=== PATIENT | male | born 1950 | race Caucasian/White ===

== ENCOUNTER → 2017-03-21 | Outpatient (CLI) | payer OTHER ==
--- NOTE | 2017-03-21 11:39 | MR ---
EXAMINATION TYPE: MR shoulder RT wo con DATE OF EXAM: 03/21/2017 11:23 AM COMPARISON: NONE HISTORY: Rt. Shoulder pain TECHNIQUE: Multiplanar, multisequence imaging of the right shoulder is performed without contrast. FINDINGS: There is no evidence of an os acromiale. There are moderate hypertrophic and inflammatory c hanges in the right AC joint. The acromion is neutral. There is a complete tear of the supraspinatus and infraspinatus tendons. There is muscular retraction back to the level of the superior glenoid labrum. There is decentering of the humeral head. The superior glenoid labrum is torn this is undisplaced. The biceps tendon is attenuated within the biceps tendon groove I am unable to follow the biceps tend on in its intra-articular course may be ruptured. There is a small, 7.4 mm pseudocyst adjacent to the anterior and medial portion of the biceps tendon groove. There is an indirect sign of impingement. IMPRESSION: 1. COMPLETE TEAR OF THE INFRASPINATUS AND SUPRASPINATUS TENDONS WITH MUSCULAR RETRACTION BACK TO THE LEVEL OF THE SUPERIOR GLENOID LABRUM. 2. SLAP 2 TEAR OF THE SUPERIOR GLENOID LABRUM. 3. I'M STRONGLY SUSPICIOUS OF THE PATIENT'S BICEPS TENDON IS RUPTURED. 4. DECENTERING OF THE GLENOID WITHIN THE GLENOHUMERAL JOINT. 5. HYPERTROPHIC AND INFLAMMATORY CHANGES IN THE RIGHT AC JOINT.
== END | disposition home or self-care (01) ==
LOC: RADMRIMAIN 10:26
PROVIDERS: ATTEND Physician Assistant
DX: S46.811A Strain of other muscles, fascia and tendons at shoulder and upper arm level, right arm, initial encounter (principal); S43.431A Superior glenoid labrum lesion of right shoulder, initial encounter

== ENCOUNTER → 2019-09-08 | Outpatient (CLI) | payer OTHER ==
--- NOTE | 2019-09-09 16:09 | MR ---
EXAMINATION TYPE: MR shoulder LT wo con DATE OF EXAM: 09/08/2019 COMPARISON: Plain film 08/10/2019 HISTORY: Lt shoulder pain x 4 mos TECHNIQUE: Multiplanar, multisequence imaging of the left shoulder is performed without contrast. FINDINGS: Rotator Cuff: There is a rotator cuff tear with retraction of the supraspinatus tendon to the level o f the distal clavicle., Infraspinatus tendon is also torn and retracted, ill-defined Acromioclavicular Joint: Hypertrophic changes are present at the acromioclavicular joint Glenohumeral Joint: Shoulder is high riding. Labrum: The labrum appears grossly intact given limitation of non-arthrogram study. Biceps Tendon: The long head of biceps is in normal location within bicipital groove. Bone marrow signal: There is a T1 isointense, T2 intense focus within the humeral head measuring appr oximately 2.5 cm in greatest cephalad to caudal dimension likely representing a large geode within th e lateral superior proximal humerus possibly bone cyst Other: There is fluid signal subacromial subdeltoid bursa. Spurring present at the proximal humerus. Small joint effusion. IMPRESSION: Rotator cuff tear. Osteoarthritis. Probable large geode or bone cyst.
== END | disposition home or self-care (01) ==
LOC: RADMRIMAIN 12:38
PROVIDERS: ATTEND Physician Assistant
DX: M75.102 Unspecified rotator cuff tear or rupture of left shoulder, not specified as traumatic (principal); M19.012 Primary osteoarthritis, left shoulder

== ENCOUNTER → 2019-11-03 | Outpatient (CLI) | payer OTHER ==
[2019-11-03 14:41] LABS: Basophils % (A) 0 %; Eosinophils # (A) 0.2 k/uL (0-0.7); Eosinophils % (A) 2 %; HCT 48.5 % (39.0-53.0); HGB 16.2 gm/dL (13.0-17.5); Lymphocytes # (A) 2.9 k/uL (1.0-4.8); Lymphocytes % (A) 39 %; MCH 32.3 pg (25.0-35.0); MCHC 33.3 g/dL (31.0-37.0); MCV 96.9 fL (80.0-100.0); Mean Platelet Volume 7.7; Monocytes # (A) 0.4 k/uL (0-1.0); Monocytes % (A) 6 %; Neutrophils # (A) 3.7 k/uL (1.3-7.7); Neutrophils % (A) 49 %; Platelet Count 277 k/uL (150-450); RBC 5.01 m/uL (4.30-5.90); RDW 12.7 % (11.5-15.5); WBC 7.6 k/uL (3.8-10.6)
[2019-11-03 14:42] LABS: Potassium 4.4 mmol/L (3.5-5.1)
== END | disposition home or self-care (01) ==
LOC: LABPAT 11-02 11:34
PROVIDERS: ATTEND Orthopaedic Surgery
DX: Z01.818 Encounter for other preprocedural examination (principal); Z01.812 Encounter for preprocedural laboratory examination; M75.42 Impingement syndrome of left shoulder
CPT/HCPCS: 36415; 80051; 85025; 93005

== ENCOUNTER → 2020-01-22 | Outpatient (CLI) | payer OTHER ==
[2020-01-22 13:33] LABS: Basophils # (A) 0.1 k/uL (0-0.2); Basophils % (A) 1 %; Eosinophils # (A) 0.2 k/uL (0-0.7); Eosinophils % (A) 3 %; HCT 45.5 % (39.0-53.0); HGB 14.7 gm/dL (13.0-17.5); Lymphocytes # (A) 2.5 k/uL (1.0-4.8); Lymphocytes % (A) 37 %; MCH 31.9 pg (25.0-35.0); MCHC 32.4 g/dL (31.0-37.0); MCV 98.5 fL (80.0-100.0); Mean Platelet Volume 7.9; Monocytes # (A) 0.4 k/uL (0-1.0); Monocytes % (A) 5 %; Neutrophils # (A) 3.5 k/uL (1.3-7.7); Neutrophils % (A) 51 %; Platelet Count 239 k/uL (150-450); RBC 4.62 m/uL (4.30-5.90); RDW 12.8 % (11.5-15.5); WBC 6.9 k/uL (3.8-10.6)
[2020-01-23 00:34] LABS: Anion Gap 7.7 mmol/L (4.00-12.00); Carbon Dioxide 25.3 mmol/L (21.6-31.8)
== END | disposition home or self-care (01) ==
LOC: LABWHC1 11:54
PROVIDERS: ATTEND Pediatrics Pediatric Infectious Diseases
DX: Z01.818 Encounter for other preprocedural examination (principal); M75.42 Impingement syndrome of left shoulder
CPT/HCPCS: 80051; 85025; 36415; U0003

== ENCOUNTER 2020-01-25 10:29 | Day surgery (SDC) | payer OTHER ==
[2020-01-21 13:00] VITALS: BMI 24.3
--- NOTE | 2020-01-24 15:32 | HP ---
HISTORY AND PHYSICAL REASON FOR ADMISSION: Surgery is scheduled for 01/25/2020. Nirav Sherman is a 69-year-old patient seen with progressive left shoulder pain. We discussed options. He elected to proceed with arthroscopy. Consent was obtained. PAST MEDICAL HISTORY: Asthma. PAST SURGICAL HISTORY: Carpal tunnel release, right knee surgery. DAILY MEDICATIONS: Ibuprofen. ALLERGIES: SUDAFED. SOCIAL HISTORY: Denies current tobacco use. PHYSICAL EXAMINATION: Evaluation of the left shoulder: Flexion is 140 degrees, abduction 120 degrees, external rotation is 30 degrees with significant weakness. There is tenderness along the anterolateral acromion and rotator cuff insertion site. Impingement positive at 60 degrees. Drop-arm sign is positive. Distal neurovascular exam is intact. RADIOGRAPHS: Radiographs of the left shoulder revealed a type 2 anterior acromion, acromioclavicular joint osteoarthritic changes with cystic changes along the tuberosity. MRI of the left shoulder revealed a retracted rotator cuff tendon tear. IMPRESSION: 1. Left shoulder impingement with rotator cuff tear. 2. Left shoulder acromioclavicular joint osteoarthritis. PLAN: Left shoulder arthroscopy with subacromial decompression, arthroscopic rotator cuff repair, Caleb procedure and debridement. Surgery is scheduled for 01/25/2020. MMODL / IJN: [id number] /
[~2020-01-25 10:29] MED LIST: DEXAMETHASONE SOD PHOSPHATE 10 MG/ML 1 ML VIAL IV ONE; HYDROmorphone 0.5 MG/0.5 ML SYRINGE IVP PRN; LACTATED RINGERS 1,000 ML IV SCH; MIDAZOLAM 2 MG/2 ML VIAL IV PRN; ONDANSETRON 4 MG/2 ML VIAL IVP ONE
[2020-01-25] MEDS ORDERED: fentaNYL (PF) 50 MCG/ML 2 ML AMP IVP ONE (11:17)
--- NOTE | 2020-01-25 11:28 | P.ANPRN ---
Procedure Note - Anesthesia - Nerve Block Performed Left Interscalene Single Time Out Performed: Yes Date of Procedure: 01/25/20 Procedure Start Time: 11:16 Procedure Stop Time: 11:26 Location of Patient: PreOp Indication: Acute Post-Operative Pain, Requested by Surgeon Sedation Type: Sedate with meaningful contact maintained Preparation: Sterile Prep Position: Sitting Catheter: None Needle Types: Pajunk Needle Gauge: 21 Ultrasound used to visualize needle placement: Yes Ultrasound used to observe medication spread: Yes Injectate: 0.5% Ropivacaine (see comment for volume) (ROPIVACAINE 0.5%- 19 CC + DECADRON 4MG) Blood Aspirated: No Pain Paresthesia on Injection Noted: No Resistance on Injection: Normal Image Stored and Saved: Yes Events: Uneventful and Well Tolerated
[2020-01-25] MEDS ORDERED: PROPOFOL 10 MG/ML 20 ML VIAL IV ONE (12:00)
[2020-01-25] MEDS ORDERED: DEXAMETHASONE SOD PHOSPHATE 4 MG/ML 1 ML VIAL ONE (12:00)
[2020-01-25] MEDS ORDERED: MIDAZOLAM 2 MG/2 ML VIAL ONE (12:00)
[2020-01-25] MEDS ORDERED: LIDOCAINE 1% INJ 10MG/ML (20 ML MDV) ONE (12:00)
[2020-01-25] MEDS ORDERED: ROPIVACAINE 5 MG/ML 30 ML VIAL ONE (12:00)
[2020-01-25] MEDS ORDERED: ePHEDrine SULFATE/0.9% NACL/PF 50 MG/5 ML SYRINGE IV ONE (12:00)
[2020-01-25] MEDS ORDERED: fentaNYL (PF) 50 MCG/ML 2 ML AMP ONE (12:00)
[2020-01-25] MEDS ORDERED: SUCCINYLCHOLINE CHLORIDE 100 MG/5 ML SYR IV ONE (12:00)
[2020-01-25] MEDS ORDERED: LACTATED RINGERS 1,000 ML IV ONE (13:29)
[2020-01-25 13:35] VITALS: TEMP 96.9
--- NOTE | 2020-01-25 13:39 | P.OP ---
Date of Procedure: 01/25/20 Preoperative Diagnosis: Left shoulder impingement Postoperative Diagnosis: 1. Left shoulder massive nonrepairable rotator cuff tendon tear 2. Left shoulder impingement 3. Left shoulder acromioclavicular joint osteoarthritis 4. Left shoulder partial long head biceps tendon tear Procedure(s) Performed: 1. Left shoulder arthroscopic subacromial decompression 2. Left shoulder arthroscopic Caleb procedure 3. Left shoulder arthroscopic biceps tenotomy Anesthesia: GETA, regional (Interscalene block) Surgeon: Manjinder Bowles Estimated Blood Loss (ml): 11 Pathology: none sent Condition: stable Disposition: PACU Indications for Procedure: 69-year-old patient seen with progressive left shoulder pain. After having treatment options discussed, he elected to proceed with arthroscopy. Operative Findings: See description of procedure Description of Procedure: Patient underwent an interscalene block by department of anesthesia. The patient was then taken to the operative suite. The patient underwent a general anesthetic by the department of anesthesia. The patient was placed into a lateral position and secured. There was appropriate padding of the bony prominence. Left shoulder was then prepped and draped in normal sterile orthopedic fashion. We placed the extremity in 10 pounds of longitudinal traction. A posterior incision was now made for a posterior working portal site. The trocar and cannula were inserted into the glenohumeral joint. Arthroscopy was initiated. Spinal needle was now inserted anteriorly, to ascertain the anterior working portal site. An incision was now made in that area, a trocar was inserted followed by a probe. I immediately noted a massive rotator cuff tear that I could visualize from glenohumeral side. I couldn't visualize any rotator cuff tendon tissue. There were mild grade 1 chondromalacia changes of the glenohumeral joint. There was a significant partial long head biceps tendon tear noting about 80% tendon fibers were torn. I performed arthroscopic biceps tenotomy. I probed the labrum and it was stable. Instruments removed from glenohumeral joint. Utilizing the posterior working portal site, the trocar and cannula were inserted into the subacromial space. Arthroscopy initiated. I made an incision 2 fingerbreadths lateral to the acromion. I introduced my trocar followed by my ArthroCare ablator. I now began ablating thick subacromial bursal tissue, which exposed the undersurface of the anterior acromion. There was diminished subacromial space. There was a very prominent anterior acromion. There was no rotator cuff tendon tissue [] a repair. I finally found retracted tissue beyond the labrum. It was not mobile. A motorized bur was introduced and a subacromial decompression was performed. I also excised some osteophytes off the inferior aspect of the distal clavicle. The AC joint was visualized and noted to be fairly arthritic. The motorized bur was introduced in the anterior portal site and a Caleb procedure was performed without difficulty, decompressing the AC joint nicely. I turned my attention to the rotator cuff. I now tried to release what tendon tissue I found superiorly and posteriorly. It was not mobile. There was no real tendon tissue to repair. Instruments now removed from the portal sites. All portal sites were approximated with nylon suture. I injected 1 mL Renyte subacromially. Sterile dressings were applied followed by a shoulder sling. The patient was awakened, transferred to a bed, and taken to recovery in stable condition.
[2020-01-25 13:47] VITALS: RESP 16
[2020-01-25 14:30] VITALS: BP 120/70; PULSE 82
== END 2020-01-25 14:59 | disposition home or self-care (01) ==
LOC: OR 10:29
PROVIDERS: ATTEND Orthopaedic Surgery
DX: M19.012 Primary osteoarthritis, left shoulder (principal); M75.102 Unspecified rotator cuff tear or rupture of left shoulder, not specified as traumatic; S46.112A Strain of muscle, fascia and tendon of long head of biceps, left arm, initial encounter; M75.42 Impingement syndrome of left shoulder; M94.212 Chondromalacia, left shoulder; J45.909 Unspecified asthma, uncomplicated; Z88.8 Allergy status to other drugs, medicaments and biological substances; Z87.891 Personal history of nicotine dependence; Z79.899 Other long term (current) drug therapy; Z98.890 Other specified postprocedural states
CPT/HCPCS: 64415; 76942; 29826; 29824; J2250; J1100 ×2; J0690; J2405; J2001; J3010; J2795; J0330; J2704

== ENCOUNTER → 2021-01-17 | Outpatient (CLI) | payer OTHER ==
[2021-01-17 12:41] LABS: Basophils % (A) 1 %; Eosinophils # (A) 0.2 k/uL (0-0.7); Eosinophils % (A) 3 %; HGB 15.3 gm/dL (13.0-17.5); Lymphocytes # (A) 2.1 k/uL (1.0-4.8); Lymphocytes % (A) 33 %; MCH 32.8 pg (25.0-35.0); MCHC 34.1 g/dL (31.0-37.0); MCV 96.3 fL (80.0-100.0); Mean Platelet Volume 8.2; Monocytes # (A) 0.4 k/uL (0-1.0); Monocytes % (A) 6 %; Neutrophils # (A) 3.5 k/uL (1.3-7.7); Neutrophils % (A) 55 %; Platelet Count 227 k/uL (150-450); RBC 4.67 m/uL (4.30-5.90); RDW 12.6 % (11.5-15.5); WBC 6.3 k/uL (3.8-10.6)
[2021-01-17 12:52] LABS: Potassium 4.4 mmol/L (3.5-5.1)
== END | disposition home or self-care (01) ==
LOC: LABPAT 10:58
PROVIDERS: ATTEND Orthopaedic Surgery
DX: G56.01 Carpal tunnel syndrome, right upper limb (principal); Z01.812 Encounter for preprocedural laboratory examination
CPT/HCPCS: 36415; 80051; 85025

== ENCOUNTER 2021-02-09 12:28 | Day surgery (SDC) | payer OTHER ==
[2021-02-07 12:08] VITALS: BMI 24.0
--- NOTE | 2021-02-08 21:10 | HP ---
HISTORY AND PHYSICAL REASON FOR ADMISSION: Surgery is scheduled for 02/09/2021 HISTORY OF PRESENT ILLNESS: Nirav Wynn is a 70-year-old patient seen with symptomatic right carpal tunnel syndrome. We discussed options for treatment. He elected to proceed with decompression right median nerve. Consent was obtained. PAST MEDICAL HISTORY: Asthma. PAST SURGICAL HISTORY: Carpal tunnel surgery, herniorrhaphy, knee arthroscopy, shoulder arthroscopy. MEDICATIONS: Ibuprofen. ALLERGIES: SUDAFED. SOCIAL HISTORY: Denies tobacco use. PHYSICAL EXAMINATION: Physical evaluation of the right hand: He has a positive carpal compression and carpal Tinel's causing numbness and tingling throughout the median nerve distribution. He does have some decreased sensation throughout the median nerve distribution. He is nontender along the A1 les sites. There is good perfusion distally. Good radial pulse present. EMG of the right upper extremity revealed a right carpal tunnel syndrome. RADIOGRAPHS: Radiographs of the right wrist and hand revealed carpometacarpal osteoarthritis. IMPRESSION: 1. Right carpal tunnel syndrome. 2. Right wrist osteoarthritis. 3. Asthma. PLAN: Decompression, right median nerve. MMODL / IJN: [id number] /
[~2021-02-09 12:28] MED LIST changes: -DEXAMETHASONE SOD PHOSPHATE 10 MG/ML 1 ML VIAL IV ONE; +DEXAMETHASONE SOD PHOSPHATE 4 MG/ML 1 ML VIAL IV ONE; -LACTATED RINGERS 1,000 ML IV SCH; +LIDOCAINE 1% (10MG/ML) FOR IV START INTRADERMA PRN; +Pre Op ABX Message 1 EACH MISC MISCELLANE ONE
[2021-02-09] MEDS: LACTATED RINGERS 1,000 ML IV SCH ×2 (13:25→13:50)
[2021-02-09] MEDS ORDERED: PROPOFOL 10 MG/ML 20 ML VIAL IV ONE (13:45)
[2021-02-09] MEDS ORDERED: fentaNYL (PF) 50 MCG/ML 2 ML AMP ONE (13:45)
[2021-02-09] MEDS ORDERED: MIDAZOLAM 2 MG/2 ML VIAL ONE (13:45)
[2021-02-09] MEDS ORDERED: LIDOCAINE 1% INJ 10MG/ML (20 ML MDV) ONE (13:45)
[2021-02-09] MEDS ORDERED: BUPIVACAINE (PF) 0.25% 30 ML VIAL SQ ONE ×2 (13:47→13:58)
[2021-02-09] MEDS ORDERED: SODIUM CHLORIDE 0.9% 100 ML with ceFAZolin 2,000 MG IV ONE ×2 (13:54)
[2021-02-09 14:19] VITALS: TEMP 97.1
--- NOTE | 2021-02-09 14:19 | P.OP ---
Date of Procedure: 02/09/21 Preoperative Diagnosis: Right carpal tunnel syndrome Postoperative Diagnosis: Right carpal tunnel syndrome Procedure(s) Performed: Decompression right median nerve Anesthesia: MAC, local Surgeon: Manjinder Bowles Estimated Blood Loss (ml): 0 Pathology: none sent Condition: stable Disposition: PACU Indications for Procedure: 70-year-old gentleman seen with symptomatic right carpal syndrome. After having treatment options discussed, he elected to proceed with decompression right median nerve. Operative Findings: see description of procedure Description of Procedure: The patient was taken to the operative suite. Patient received preoperative IV antibiotics. He underwent IV sedation by the department of anesthesia. A well- padded tourniquet was placed on the proximal right upper extremity. The right upper extremity was prepped and draped in the normal sterile orthopedic fashion. The extremity was elevated and tourniquet insufflated to 250. I made an incision beginning at the distal volar wrist crease extending distally approximately 3 cm in line with the fourth metacarpal sharply through skin. I dissected down through the palmar fascia exposing the transverse carpal ligament. I made a small incision through the center portion of transverse carpal ligament ligament. I completed the release proximally and distally with blunt Metzenbaums. There was good complete release of the transverse carpal ligament. There was good decompression of the nerve. There was good hemostasis. The wound was irrigated. The skin margins were proximal nylon suture. Sterile dressings were applied. The tourniquet was released with immediate capillary refill noted. The patient was awakened and transferred to recovery stable condition.
[2021-02-09 14:32] VITALS: RESP 16
[2021-02-09 14:45] VITALS: BP 130/72; PULSE 58
== END 2021-02-09 14:56 | disposition home or self-care (01) ==
LOC: OR 12:28
PROVIDERS: ATTEND Orthopaedic Surgery
DX: G56.01 Carpal tunnel syndrome, right upper limb (principal); J45.909 Unspecified asthma, uncomplicated; M19.031 Primary osteoarthritis, right wrist; E78.5 Hyperlipidemia, unspecified; Z79.899 Other long term (current) drug therapy; Z88.8 Allergy status to other drugs, medicaments and biological substances
CPT/HCPCS: 64721; J2250; J1100; J2405; J0690; J2001; J3010; J2704

== ENCOUNTER → 2022-11-23 | Outpatient (CLI) | payer OTHER | END | disposition home or self-care (01) | LOC: LABPAT 10:20 | PROVIDERS: ATTEND Orthopaedic Surgery | DX: Z01.812 Encounter for preprocedural laboratory examination (principal); M17.11 Unilateral primary osteoarthritis, right knee; Z22.322 Carrier or suspected carrier of Methicillin resistant Staphylococcus aureus | CPT/HCPCS: 87070 ==

== ENCOUNTER → 2023-09-24 | Outpatient (CLI) | payer OTHER | END | disposition home or self-care (01) | LOC: LABPAT 16:12 | PROVIDERS: ATTEND Orthopaedic Surgery | DX: Z01.812 Encounter for preprocedural laboratory examination (principal); M17.11 Unilateral primary osteoarthritis, right knee; Z22.322 Carrier or suspected carrier of Methicillin resistant Staphylococcus aureus | CPT/HCPCS: 87070 ==

== ENCOUNTER 2023-12-23 11:14 | Day surgery (SDC) | payer OTHER ==
--- NOTE | 2023-12-22 13:52 | HP ---
HISTORY AND PHYSICAL Surgery scheduled for 12/23/2023. HISTORY OF PRESENT ILLNESS: Nirav Sherman is a 73-year-old gentleman seen with symptomatic right knee osteoarthritis. We discussed the options regarding treatment. He elected to proceed with right total knee arthroplasty. Consent was obtained. Medical clearance provided by . Cardiac clearance was provided by Dr. Graff. PAST MEDICAL HISTORY: Asthma. PAST SURGICAL HISTORY: Carpal tunnel surgery, shoulder arthroscopy, knee arthroscopy, and herniorrhaphy. DAILY MEDICATIONS: 1. Ibuprofen. 2. Rosuvastatin. ALLERGIES: Sudafed. SOCIAL HISTORY: Denies current tobacco use. PHYSICAL EVALUATION OF THE RIGHT KNEE: Range of motion is -2/3 to 130 degrees. Mild effusion. Tenderness along the lateral joint line. Crepitus, lateral patellofemoral compartments. Ligaments stable. Hip rotation without pain. Distal neurovascular exam is intact. IMAGING STUDIES: Right knee radiographs reveal severe lateral compartment and severe patellofemoral compartment osteoarthritis. IMPRESSION: 1. Right knee osteoarthritis. 2. Hyperlipidemia. PLAN: Right total knee arthroplasty. MMODL / IJN: [id number] /
[~2023-12-23 11:14] MED LIST changes: -DEXAMETHASONE SOD PHOSPHATE 4 MG/ML 1 ML VIAL IV ONE; -HYDROmorphone 0.5 MG/0.5 ML SYRINGE IVP PRN; -LIDOCAINE 1% (10MG/ML) FOR IV START INTRADERMA PRN; -MIDAZOLAM 2 MG/2 ML VIAL IV PRN; -ONDANSETRON 4 MG/2 ML VIAL IVP ONE; -Pre Op ABX Message 1 EACH MISC MISCELLANE ONE; +TRANEXAMIC 1,000 MG/100ML-NACL 1,000 MG in SALINE 1 100ML.BAG IVPB PRN
[2023-12-23] MEDS: DEXAMETHASONE SOD PHOSPHATE 4 MG/ML 1 ML VIAL IV ONE (11:55)
[2023-12-23] MEDS: LACTATED RINGERS 1,000 ML IV SCH ×2 (11:55→17:38)
[2023-12-23] MEDS: MELOXICAM 7.5 MG TAB PO PRN (11:55)
[2023-12-23] MEDS: ACETAMINOPHEN TAB 500 MG TAB PO PRN (11:55)
[2023-12-23] MEDS: ONDANSETRON 4 MG/2 ML VIAL IVP ONE (11:55)
[2023-12-23] MEDS: MIDAZOLAM 2 MG/2 ML VIAL IVP ONE (12:07)
[2023-12-23 12:16] LABS: Partial Thromboplastin Time 24.2 sec (22.0-30.0); Prothrombin Time 10.9 sec (10.0-12.5)
[2023-12-23] MEDS ORDERED: fentaNYL (PF) 50 MCG/ML 2 ML AMP ONE (13:03)
[2023-12-23] MEDS ORDERED: PROPOFOL 10 MG/ML 20 ML VIAL IV ONE (13:03)
[2023-12-23] MEDS ORDERED: LIDOCAINE 1% INJ 10MG/ML (20 ML MDV) ONE (13:03)
[2023-12-23] MEDS ORDERED: ROPIVACAINE 5 MG/ML 30 ML VIAL ONE (13:03)
[2023-12-23] MEDS ORDERED: TRANEXAMIC 1,000 MG/100ML-NACL PREMIX BAG ONE (13:03)
[2023-12-23] MEDS ORDERED: DEXAMETHASONE SOD PHOSPHATE 4 MG/ML 1 ML VIAL ONE (13:03)
[2023-12-23] MEDS ORDERED: MIDAZOLAM 2 MG/2 ML VIAL ONE (13:03)
[2023-12-23] MEDS: ceFAZolin 1,000 MG in SODIUM CHLORIDE 0.9% 1,000 ML IRRIGATION ONE (13:36)
[2023-12-23] MEDS: LACTATED RINGERS 1,000 ML IV ONE (15:12)
[2023-12-23] MEDS ORDERED: HYDROcodone/APAP 5-325MG 1 EACH TAB PO PRN (15:15)
[2023-12-23] MEDS ORDERED: NALOXONE 0.4 MG/ML 1 ML VIAL IV PRN (15:15)
[2023-12-23] MEDS ORDERED: ONDANSETRON 4 MG/2 ML VIAL IVP PRN (15:15)
[2023-12-23] MEDS ORDERED: HYDROmorphone 0.5 MG/0.5 ML SYRINGE IVP PRN ×3 (15:15)
--- NOTE | 2023-12-23 15:15 | P.OP ---
Date of Procedure: 12/23/23 Preoperative Diagnosis: Right knee osteoarthritis Postoperative Diagnosis: Right knee osteoarthritis Procedure(s) Performed: Right total knee arthroplasty Implants: 1. DePuy attune size 8 right cruciate retaining cemented femur 2. DePuy attune size 7 fixed-bearing cemented tibial baseplate 3. DePuy attune size 8 fixed-bearing cruciate retaining 6 mm polyethylene tibial insert 4. DePuy attune 41 mm all polyethylene cemented patella Anesthesia: regional (Adductor canal catheter, iPAQ block), spinal Surgeon: Manjinder Bowles [employer] #1: Jason Kay Estimated Blood Loss (ml): 45 Pathology: none sent Condition: stable Disposition: PACU Indications for Procedure: 73-year-old patient seen with symptomatic right knee osteoarthritis. After treatment options were discussed, he elected to proceed with total knee ar throplasty. Operative Findings: See description of procedure Description of Procedure: Patient was taken to the operative suite after having an adductor canal catheter placed by the department of anesthesia. Patient underwent a spinal anesthetic by the department of anesthesia. Patient was given preoperative IV intake antibiotics and TXA. A well-padded tourniquet was placed about the right lower extremity. The lower extremity was then prepped and draped in the normal sterile orthopedic fashion. The extremity was elevated, a tourniquet was insufflated to 300. A standard anterior incision was made sharply through skin. Dissection was taken down through the subcutaneous soft tissues down to the extensor mechanism. A medial arthrotomy was performed, patella was everted and knee was flexed. There was advanced osteoarthritis noted. I introduced my distal intramedullary femoral drill. I then introduced the distal femoral cutting jig. Ab GERARD secured the cutting jig with 2 pins. I held retractors in position while Ab GERARD performed the distal femoral resection through the guide area we now removed her distal femoral cutting guide. We now placed our 4-in-1 femoral cutting block and positioned and it was secured with 2 pins by Ab GERARD while I held the block in position. The distal femoral finishing was now completed. A proximal tibial cutting guide was positioned. I held the guide in the appropriate position with both hands well Ab GERARD inserted stabilizing pins into the guide. Proximal tibial cut was made. We now placed a trial femoral component into position, along with an appropriate size tibial tray and insert. We now took the knee through range of motion and had full extension good flexion and good overall soft tissue balance noted. The patella was everted and stabilized with 2 towel clips held by Ab GERARD while I performed a flush with patellar quad tendon utilizing a fresh sawblade. We templated the patella, appropriate drill holes were made. An appropriate trial patella was positioned, knee was taken through full range of motion with the patella tracking very nicely. The trial patella was removed. Drill holes were made through the femoral component. All trial components were removed after marking off the appropriate rotation of the tibia. Retractors were now positioned along the proximal tibia. An appropriate keel punch was made with the appropriate size tibial guide by myself on Ab GERARD assisted by holding retractors. At this point appropriate size implants were chosen and opened. The joint was irrigated copiously with pulse lavage mechanical irrigation. The wound was irrigated with pulse lavage mechanical irrigation. We mixed antibiotic methylmethacrylate. We placed the knee into flexion. We placed multiple retractors assisted by Ab GERARD to expose the proximal tibia. Once the methyl methacrylate was ready, the tibial component was cemented into place removing any excess methylmethacrylate form by both myself and Ab GERARD. The femoral component was cemented into place removing the removing any excess methylmethacrylate performed by both myself and Ab GERARD. We then inserted the appropriate size polyethylene tibial insert. We made sure that it was locked into position. We took the knee into full extension, and then back in a flexion making sure we had removed any excess methylmethacrylate. The patellar component was then cemented down and secured with clamp. Excess methylmethacrylate removed. We kept the knee in full extension, patellar clamp in position until methylmethacrylate had hardened. Once it had hardened the patellar clamp was removed. The knee was taken through full range of motion. The patella tracked nicely. There was good soft tissue balancing. The tourniquet was now released. Additional hemostasis was achieved via electrocautery. A second gram of TXA was given. The wound again was irrigated with pulse lavage mechanical irrigation. The extensor mechanism was repaired with Ethibond suture. We checked the repair with range of motion and it was stable. The subcutaneous soft tissues were repaired with Vicryl in layers. The skin was approximated with pernio/Dermabond. Sterile dressings were applied followed by loose web roll and Luis bandage. The patient was transferred to a bed, and taken to recovery in stable and satisfactory condition. Ab GERARD assisted with this complex procedure.
[2023-12-23] MEDS: ROPIVACAINE 1,100 MG, SODIUM CHLORIDE 0.9% 500 ML 330 ML, EMPTY PAIN BALL 1 EACH MISCELLANE PRN (15:57)
[2023-12-23] MEDS: HYDROmorphone 0.5 MG/0.5 ML SYRINGE IVP ONE (16:41)
--- NOTE | 2023-12-23 16:43 | XR ---
EXAMINATION TYPE: XR knee limited RT DATE OF EXAM: 12/23/2023 4:35 PM CLINICAL INDICATION:Male, 73 years old with history of Evaluation for Postop abnormality and alignmen t; [facility] COMPARISON: None. TECHNIQUE: XR knee limited RT; examined in Frontal, lateral and oblique projections. FINDINGS: Status post total knee arthroplasty changes with hardware in appropriate alignment and in tact. No evidence of fracture. Subcutaneous lucencies and lucencies within the joint consistent with surgical changes. IMPRESSION: Status post total knee arthroplasty changes with hardware intact and appropriate alignment. No fractu res identified.
--- NOTE | 2023-12-23 18:42 | P.ANPRN ---
Procedure Note - Anesthesia - Nerve Block Performed Right Adductor Canal Infusion Time Out Performed: Yes Date of Procedure: 12/23/23 Procedure Start Time: 12: Procedure Stop Time: :25 Location of Patient: PreOp Indication: Acute Post-Operative Pain, Requested by Surgeon Sedation Type: Sedate with meaningful contact maintained Preparation: Sterile Prep, Sterile Dressing Position: Supine Catheter: Indwelling Needle Types: Pajunk Needle Gauge: 21 Ultrasound used to visualize needle placement: Yes Ultrasound used to observe medication spread: Yes Blood Aspirated: No Pain Paresthesia on Injection Noted: No Resistance on Injection: Normal Image Stored and Saved: Yes Events: Uneventful and Well Tolerated (Ropivacaine 0.5% 20 cc plus dexamethasone 4 mg)
--- NOTE | 2023-12-23 18:44 | P.ANPRN ---
Procedure Note - Anesthesia - Nerve Block Performed Right Tuckerck Single Time Out Performed: Yes Date of Procedure: 12/23/23 Procedure Start Time: 12: Procedure Stop Time: : Location of Patient: PreOp Indication: Acute Post-Operative Pain, Requested by Surgeon Sedation Type: Sedate with meaningful contact maintained Preparation: Sterile Prep Position: Supine Needle Types: Pajunk Ultrasound used to visualize needle placement: Yes Ultrasound used to observe medication spread: Yes Blood Aspirated: No Pain Paresthesia on Injection Noted: No Image Stored and Saved: Yes Events: Uneventful and Well Tolerated (Ropivacaine 0.5% 20 cc plus dexamethasone 4 mg)
[2023-12-23] MEDS: SENNOSIDES-DOCUSATE SODIUM 1 EACH TAB PO SCH (20:50)
[2023-12-23] MEDS: ENOXAPARIN 30 MG/0.3 ML SYRINGE SQ SCH (20:50)
[2023-12-23] MEDS: HYDROcodone/APAP 7.5-325MG 1 EACH TAB PO PRN (23:48)
[2023-12-24] MEDS ORDERED: ALBUTEROL NEBULIZED 2.5 MG/3 ML INHALATION PRN (00:59)
--- NOTE | 2023-12-24 00:59 | P.CONS ---
History of Present Illness - Reason for Consult Consult date: 12/23/23 - History of Present Illness Patient is a 73-year-old male with a PMH of asthma and hyperlipidemia who was admitted for an elective right total knee replacement. The patient underwent the procedure earlier today and was seen postoperatively on the surgical unit. He reported excellent control of his pain at the time of interview, rated at a 0 out of 10. The patient reports that he has not gotten out of bed as of yet, has passed urine but has not passed flatus. He denied any additional complaints. Denied experiencing sore throat, fever, chills, chest pain, shortness of breath, nausea, vomiting, abdominal pain, diarrhea. Review of systems: Pertinent positives and negatives as discussed in HPI, a complete review of systems was performed and all other systems are negative. Physical examination: Vital signs reviewed General: non toxic, no distress, appears at stated age, normal weight Derm: no unusual rashes/lesions, warm Head: atraumatic, normocephalic, symmetric Eyes: EOMI, no lid lag, anicteric sclera, pupils equal round reactive to light ENT: Nose and ears atraumatic Neck: No cervical lymphadenopathy, trachea midline, supple Mouth: no lip lesion, mucus membranes moist Cardiovascular: S1S2 reg, no murmur, positive dorsalis pedis pulse bilateral, no edema Lungs: CTA bilateral, no rhonchi, no rales, no accessory muscle use Abdominal: soft, nontender to palpation, no guarding Ext: muscle strength 5 out of 5 in all extremities grossly except right lower extremity due to postsurgical right knee with Luis bandage in place, no gross muscle atrophy, no contractures, Neuro: CN II-XI grossly intact, no gross focal neuro deficits Psych: Alert, oriented, appropriate affect Assessment: Chronic conditions: Asthma, hyperlipidemia Status post right total knee replacement Plan: Resume patient's home statin with albuterol as needed Defer management of pain control and DVT prophylaxis to the primary surgery service Past Medical History Past Medical History: Asthma, Cancer, Hearing Disorder / Deafness, Hyperlipidemia, Osteoarthritis (OA) Additional Past Medical History / Comment(s): skin cancer, palpitations, allergy induced asthma, hx. vertigo History of Any Multi-Drug Resistant Organisms: None Reported Past Surgical History: Hernia Repair, Orthopedic Surgery Additional Past Surgical History / Comment(s): LEFT SHOULDER X2. saad. inguinal hernia repairs, ARTHROSCOPY RIGHT KNEE , SAAD HAND CARPAL TUNNEL RELEASE, BILAT. EYE PRK Past Anesthesia/Blood Transfusion Reactions: No Reported Reaction Smoking Status: Former smoker - Past Family History Sister(s) Family Medical History: Cancer Additional Family Medical History / Comment(s): LYMPHOMA Medications and Allergies Home Medications Medication Instructions Recorded Confirmed Type Fish Oil/Dha/Epa [Fish Oil 1,200 1 each PO BID 01/21/20 12/19/23 History mg Fish Oil] Ibuprofen [Motrin] 800 mg PO DAILY PRN 01/21/20 12/19/23 History L.acidoph,Paracasei, B.lactis 1 each PO BID 01/21/20 12/19/23 History [Probiotic] Multivitamins, Thera [Multivitamin 2 tab PO BID 01/21/20 12/19/23 History (formulary)] Prostate Blend 1 cap PO BID 01/21/20 12/19/23 History Quercetin 400 mg PO BID 01/21/20 12/19/23 History Rosuvastatin Calcium 10 mg PO HS 02/09/21 12/19/23 History Albuterol Inhaler [Ventolin Hfa 1 - 2 puff INHALATION Q6H PRN 10/22/23 12/19/23 History Inhaler] Ascorbic Acid [Vitamin C] 1,000 mg PO DAILY 10/22/23 12/19/23 History Cholecalciferol [Vitamin D3 (25 2,000 unit PO DAILY 10/22/23 12/19/23 History Mcg = 1000 Iu)] Cyanocobalamin (Vitamin B-12) 1,000 mcg PO DAILY 10/22/23 12/19/23 History [Vitamin B-12] Lung & Bronchial Support 1 tab PO BID 10/22/23 12/19/23 History Nettle 480 mg PO BID 10/22/23 12/19/23 History Psyllium Husk [Fiber Capsule] 2 tab PO HS 10/22/23 12/19/23 History Vitamin B Complex 1 each PO DAILY 10/22/23 12/19/23 History Zinc Gluconate [Zinc] 30 mg PO DAILY 10/22/23 12/19/23 History Aspirin 81 mg PO DAILY 12/19/23 12/19/23 History Calcium 26/Vit D3/Magnesium 15 1 cap PO BID 12/19/23 12/19/23 History [[id number] Complx 167Mg Cp] Allergies Allergy/AdvReac Type Severity Reaction Status Date / Time pseudoephedrine Allergy skin Verified 12/23/23 11:35 [From [facility]] turned all red & peeled Physical Exam Vitals: Vital Signs Temp Pulse Pulse Resp BP Pulse Ox 12/23/23 19:07 98.1 F 108 H 18 134/82 94 L 12/23/23 17:23 97.5 F L 76 17 131/87 98 12/23/23 16:59 74 14 136/74 95 12/23/23 16:30 74 14 147/75 94 L 12/23/23 16:15 64 14 133/77 95 12/23/23 16:00 74 14 127/74 94 L 12/23/23 15:45 82 14 121/77 98 12/23/23 15:31 97.2 F L 76 14 126/77 97 12/23/23 12:30 69 16 140/72 99 12/23/23 11:59 97.9 F 74 16 152/87 98 Intake and Output 12/23/23 12/23/23 12/24/23 14:59 22:59 06:59 Intake Total 1051 400 Output Total 45 Balance 1051 355 Intake: IV 1051 400 Output: Estimated Blood Loss 45 Other: # Voids 0 Weight 79.1 kg 79.1 kg
[2023-12-24 08:33] LABS: Basophils # (A) 0.03 X 10*3/uL (0.00-0.10); Basophils % (A) 0.2 %; Eosinophils # (A) 0 X 10*3/uL (0.04-0.35); Eosinophils % (A) 0 %; HGB 14.3 g/dL (13.0-17.0); Lymphocytes # (A) 1.35 X 10*3/uL (0.90-5.00); Lymphocytes % (A) 7.4 %; MCH 32.4 pg (27.0-32.0); MCHC 34.9 g/dL (32.0-37.0); Mean Platelet Volume 10.7 FL (9.5-12.2); Monocytes # (A) 0.94 X 10*3/uL (0.20-1.00); Monocytes % (A) 5.2 %; NRBC Per 100 WBC 0 X 10*3/uL (0.00-0.01); Neutrophils % (A) 86.9 %; Platelet Count 229 X 10*3/uL (140-440); RBC 4.41 X 10*6/uL (4.40-5.60); RDW 13.4 % (11.5-14.5); WBC 18.18 X 10*3/uL (4.50-10.00)
[2023-12-24 08:47] VITALS: BP 110/63; PULSE 75; RESP 17; TEMP 98.4
[2023-12-24] MEDS: CHOLECALCIFEROL 25 MCG (1000 IU) TABLET PO SCH (08:48)
[2023-12-24] MEDS: LACTOBACILLUS ACIDOPHILUS/PECT 1 EACH CAPSULE PO SCH (08:48)
[2023-12-24] MEDS: ASCORBIC ACID 500 MG TAB PO SCH (08:48)
[2023-12-24] MEDS: MULTIVITAMINS, THERA 1 EACH TAB PO SCH (08:48)
[2023-12-24] MEDS: CYANOCOBALAMIN 500 MCG TAB PO SCH (08:48)
[2023-12-24] MEDS ORDERED: CALCIUM PO SCH (09:00)
[2023-12-24] MEDS ORDERED: NON FORMULARY DRUG (Fish Oil/Dha/Epa [Fish Oil 1,200 Mg Fish Oil] 1 EACH Capsule) PO SCH (09:00)
[2023-12-24] MEDS ORDERED: MULTIVITAMINS, THERA 1 EACH TAB PO SCH (09:00)
[2023-12-24] MEDS ORDERED: [UNRECOGNIZED DRUG - OTHER] PO SCH (09:00)
[2023-12-24] MEDS ORDERED: MAGNESIUM PO SCH (09:00)
[2023-12-24] MEDS ORDERED: VIT D3 PO SCH (09:00)
[2023-12-24 10:18] LABS: African American GFR (CKD) >90 (>60 ml/min/1.73 sqM); Anion Gap 11 mmol/L; Blood Urea Nitrogen 19 mg/dL (9-20); Calcium 8.9 mg/dL (8.4-10.2); Carbon Dioxide 20 mmol/L (22-30); Chloride 107 mmol/L (98-107); Glucose 117 mg/dL (74-99); Magnesium 1.8 mg/dL (1.6-2.3); Non-African American GFR(CKD) >90 (>60 ml/min/1.73 sqM); Sodium 138 mmol/L (137-145)
--- NOTE | 2023-12-24 12:52 | P.PN ---
Subjective Progress Note Date: 12/24/23 Principal diagnosis: Status post right total knee arthroplasty Patient evaluated today at bedside, he was evaluated on 2 separate occasions. Patient has done very well with pain control and physical therapy. He is tolerating a regular diet. He is urinating with no issues. He denies headaches, lightheadedness, chest pain or shortness of breath Objective - Vital Signs Vital signs: Vital Signs Temp 98.4 F 12/24/23 07:01 Pulse 75 12/24/23 07:01 Resp 17 12/24/23 07:01 BP 110/63 12/24/23 07:01 Pulse Ox 97 12/24/23 07:01 FiO2 Intake & Output 12/23/23 12/24/23 12/24/23 18:59 06:59 18:59 Intake Total 1451 Output Total 45 1825 Balance 1406 -1825 Weight 79.1 kg Intake: IV 1451 Output: Urine 1825 Estimated Blood Loss 45 Other: Voiding Method Urinal # Voids 0 - Exam Right lower extremity: Incision is clean, dry, and intact. The foam dressing is in good condition. There is minimal soft tissue swelling and ecchymosis surrounding the medial and lateral aspects of the incision. Calf is soft, no tenderness with palpation. Plantar flexion, dorsiflexion, EHL, FHL are intact. Sensory exam to light touch throughout the extremity is intact, dorsal pedis pulses 2+. - Labs CBC & Chem 7: 12/24/23 03:53 12/24/23 09:03 Labs: Abnormal Lab Results - Last 24 Hours (Table) 12/24/23 12/24/23 Range/Units 03:53 09:03 WBC 18.18 H (4.50-10.00) X 10*3/uL MCH 32.4 H (27.0-32.0) pg Immature Gran # 0.06 H (0.00-0.04) X 10*3/uL Neutrophils # 15.80 H (1.80-7.70) X 10*3/uL Eosinophils # 0 L (0.04-0.35) X 10*3/uL Carbon Dioxide 20 L (22-30) mmol/L Glucose 117 H (74-99) mg/dL Assessment and Plan Assessment: Postoperative day #1 status post right total knee arthroplasty Plan: Pain control, plan for discharge home on [place] 7.5 mg / 325 mg DVT prophylaxis, aspirin 81 mg twice a day for for 30 days Wound care instructions were discussed, this to include when to discontinue On-Q pain catheter, icing and elevating along with showering instructions Home health care after discharge Medical recommendations appreciated Discharge planning: Patient stable for discharge home today Time with Patient: Less than 30
--- NOTE | 2023-12-24 12:55 | P.DS ---
Providers Date of admission: 12/23/2023 Expected date of discharge: 12/24/23 Attending physician: Manjinder Bowles Consults: 12/23/23 15:15 Consult Physician Routine Consulting Provider: Vanessa Webb Consult Reason/Comments: Medical management Do you want consulting provider notified?: Yes [facility] [place] [facility] Course: Date of admission: 12/23/2023 Date of discharge: 12/24/2023 Admission diagnosis: Status post right total knee arthroplasty Discharge diagnosis: Same Attending physician: Dr. Bowles Surgical procedures: Right total knee arthroplasty Brief history: Patient is a 73-year-old male with a history of progressive primary right knee osteoarthritis. At this point patient has failed conservative treatment measures and has opted to proceed with a elective right total knee arthroplasty. Hospital course: Details of patient's surgery can be found in operative report. Patient tolerated the procedure well and was subsequently transported to orthopedic floor. Patient's orthopeidc and medical care was provided daily. Patient had daily laboratory tests performed for evaluation of overall blood counts. Patient had daily physical therapy to include strengthening range of motion as well as education with walker ambulation. Patient was treated with Lovenox for their postoperative DVT prophylaxis during their inpatient stay. Patient was noted to have a relatively uneventful postoperative course. Patient reported satisfactory pain control with oral pain medications by postoperative day 0. Patient showed satisfactory progress with physical therapy. Patient moved steadily through the program and had no difficulty meeting the goals by postoperative day 1. Given patient's otherwise satisfactory course and having met physical therapy goals, plan is to discharge patient home on postoperative day 1. Discharge condition/disposition: Patient will be discharged home in stable condition. Discharge medications: Instructions are given on resumption of patient's normal daily medications per primary care recommendation, in addition patient will be prescribed [place] 7.5 mg / 325 mg, senna s. Discharge instructions: 1. Wound care and infection precautions, keep incision dry and covered while showering, no lotions, creams, moisturizers. No soaking, tubs, pools, hottubs. Do not scrub over the incision. 2. Weight-bear as tolerated with walker / cane until follow-up. 3. Ice and elevate when necessary. Do not exceed 20 minutes per hour with ice pack. 4. Utilize compression sleeve until seen at first follow up appointment. 5. Visiting nursing care. 6. Home physical therapy including home CPM. 7. Pain meds and anticoagulants per prescription. 8. Pain medication has potential to cause constipation. Increase oral fluid and fiber intake. Contact primary care provider if you have not had a bowel movement within 48 hours after discharge 9. No anti-inflammatory medication until discussed at first post operative visit, this including Motrin, Aleve, Mobic, Diclofenac. 10. Follow up in office at 2 weeks postop with Ab Kay PA-C/Syed Taylor 11. Follow up with your primary care doctor 7-10 days after discharge. 12. Contact [facility] with any questions, . Procedures: Right total knee arthroplasty Patient Condition at Discharge: Good Plan - Discharge Summary Discharge Rx Participant: No New Discharge Prescriptions: New Aspirin [Adult Low Dose Aspirin EC] 81 mg PO BID #60 tab HYDROcodone/APAP 7.5-325MG [[place] 7.5] 1 each PO Q6HR PRN #28 tab PRN Reason: Pain Sennosides/Docusate Sodium [Senna-S 8.6-50 mg Tablet] 2 each PO DAILY PRN #30 tablet PRN Reason: Constipation No Action Multivitamins, Thera [Multivitamin (formulary)] 2 tab PO BID Ibuprofen [Motrin] 800 mg PO DAILY PRN PRN Reason: Pain Quercetin 400 mg PO BID Prostate Blend 1 cap PO BID L.acidoph,Paracasei, B.lactis [Probiotic] 1 each PO BID Fish Oil/Dha/Epa [Fish Oil 1,200 mg Fish Oil] 1 each PO BID Lung & Bronchial Support 1 tab PO BID Cyanocobalamin (Vitamin B-12) [Vitamin B-12] 1,000 mcg PO DAILY Cholecalciferol [Vitamin D3 (25 Mcg = 1000 Iu)] 2,000 unit PO DAILY Calcium 26/Vit D3/Magnesium 15 [Rfanocb-Ggj-J0 Complx 167Mg Cp] 1 cap PO BID Aspirin 81 mg PO DAILY Rosuvastatin Calcium 10 mg PO HS Nettle 480 mg PO BID Zinc Gluconate [Zinc] 30 mg PO DAILY Albuterol Inhaler [Ventolin Hfa Inhaler] 1 - 2 puff INHALATION Q6H PRN PRN Reason: Shortness Of Breath Vitamin B Complex 1 each PO DAILY Psyllium Husk [Fiber Capsule] 2 tab PO HS Ascorbic Acid [Vitamin C] 1,000 mg PO DAILY Discharge Medication List Fish Oil/Dha/Epa [Fish Oil 1,200 mg Fish Oil] 1 each PO BID 01/21/20 [History] Ibuprofen [Motrin] 800 mg PO DAILY PRN 01/21/20 [History] L.acidoph,Paracasei, B.lactis [Probiotic] 1 each PO BID 01/21/20 [History] Multivitamins, Thera [Multivitamin (formulary)] 2 tab PO BID 01/21/20 [History] Prostate Blend 1 cap PO BID 01/21/20 [History] Quercetin 400 mg PO BID 01/21/20 [History] Rosuvastatin Calcium 10 mg PO HS 02/09/21 [History] Albuterol Inhaler [Ventolin Hfa Inhaler] 1 - 2 puff INHALATION Q6H PRN 10/22/23 [History] Ascorbic Acid [Vitamin C] 1,000 mg PO DAILY 10/22/23 [History] Cholecalciferol [Vitamin D3 (25 Mcg = 1000 Iu)] 2,000 unit PO DAILY 10/22/23 [History] Cyanocobalamin (Vitamin B-12) [Vitamin B-12] 1,000 mcg PO DAILY 10/22/23 [History] Lung & Bronchial Support 1 tab PO BID 10/22/23 [History] Nettle 480 mg PO BID 10/22/23 [History] Psyllium Husk [Fiber Capsule] 2 tab PO HS 10/22/23 [History] Vitamin B Complex 1 each PO DAILY 10/22/23 [History] Zinc Gluconate [Zinc] 30 mg PO DAILY 10/22/23 [History] Aspirin 81 mg PO DAILY 12/19/23 [History] Calcium 26/Vit D3/Magnesium 15 [[id number]-H4 Complx 167Mg Cp] 1 cap PO BID 12/19/23 [History] Aspirin [Adult Low Dose Aspirin EC] 81 mg PO BID #60 tab 12/24/23 [Rx] HYDROcodone/APAP 7.5-325MG [[place] 7.5] 1 each PO Q6HR PRN #28 tab 12/24/23 [Rx] Sennosides/Docusate Sodium [Senna-S 8.6-50 mg Tablet] 2 each PO DAILY PRN #30 tablet 12/24/23 [Rx] Follow up Appointment(s)/Referral(s): Jason Kay PAC [PHYSICIAN ADULT BASIC STUDIES TEACHER] - 2 Weeks Activity/Diet/Wound Care/Special Instructions: Orthopedic Discharge Instructions: 1. Wound care and infection precautions, keep incision dry and covered while showering, no lotions, creams, moisturizers. No soaking, pools, hot tubs. Do not scrub over incision. 2. Weight-bear as tolerated with walker / cane until follow-up. 3. Ice and elevate when necessary. Do not exceed 20 minutes per hour with ice pack. 4. Utilize compression sleeve until seen at first follow up appointment. 5. Pain meds and anticoagulants per prescription. 6. Pain medication has potential to cause constipation. Increase oral fluid and fiber intake. Contact primary care provider if you have not had a bowel movement within 48 hours after discharge. 7. No anti-inflammatory medication until discussed at first post operative visit, this including Motrin, Aleve, Mobic, Diclofenac. 8. Follow up in office at 2 weeks postop with Ab Kay PA-C/Syed Chowdhury PA-C 9. Follow up with your primary care doctor 7-10 days after discharge. 10. Contact [facility] with any questions, . Wound care instructions: 1. Okay to remove surgical dressing as of 12/31/2023 2. Okay to shower directly over the incision after removal of dressing Discharge Disposition: HOME WITH HOME HEALTH SERVICES
--- NOTE | 2023-12-24 13:05 | P.PN ---
Progress Note - Text 12/24/23 646am 73-year-old male status post total knee replacement Dr. Bowles. Patient has an On-Q pump for postop pain control with a solution 8cc an hour with a VAS of 2, dressing clean dry and intact. Continue On-Q pump infusion
--- NOTE | 2023-12-24 13:36 | P.PN ---
Subjective Progress Note Date: 12/24/23 Hospital course: Patient is a very pleasant 73-year-old male with a past medical history of hyperlipidemia and asthma/COPD. He is currently admitted under orthopedic surgery team status post elective right total knee arthroplasty completed by Dr. Bowles.. We were consulted for medical management throughout patient's hospitalization. Physical exam: Patient seen and fully evaluated this morning. He was working well with physical therapy. Patient reports pain is currently controlled and denies having any needs, questions, or concerns at this time at this time. Patient has been tolerating oral intake and denies having any postoperative nausea or vomiting and has been urinating without any difficulties at this time. Vital signs reviewed and stable. General: Nontoxic, no distress and appears stated age. Derm: Skin warm and dry, normal coloration for ethnicity. Head: Atraumatic, normocephalic and symmetric. Eyes: EOMs intact, no lid lag, and anicteric sclera Mouth: no lip lesions, mucus membranes moist Cardiovascular: regular rate and rhythm with normal S1S2, no murmur, positive posterior tibial pulses bilaterally, and cap refill < 2 seconds. Lungs: Respirations even, regular, and unlabored on room air. Lungs CTA bilaterally, no rhonchi, no rales, no wheezing, and no accessory muscle usage. Abdominal: soft, nontender to palpation, no guarding, no appreciable organo megaly Ext: ROM intact. No gross muscle atrophy, no edema, no contractures Neuro: Speech clear, face symmetrical and CN II-XII grossly intact with no noted focal neuro deficits Psych: Alert and oriented to person, place, time, and situation. Appropriate and pleasant affect. Assessment and Plan of Care: Status post right total knee arthroplasty -Management per primary admitting orthopedic surgery team including DVT prophylaxis, pain management, wound/dressing management, weightbearing, and PT/OT. -Patient currently on DVT prophylaxis with Lovenox. Asthma/COPD -Continue Ventolin inhaler every 6 hours as needed for shortness of breath and/or wheezing. -Encourage use of incentive spirometry. Hyperlipidemia Continue daily medication regimen with atorvastatin 20 mg nightly. Data reviewed: Urinary output over the past 24 hours is 1825. Morning labs reviewed. CBC showing mild postoperative leukocytosis with WBC count of 18.18 otherwise normal findings. BMP unremarkable with exception of mild hypocarbia with bicarb of 20 and slightly elevated glucose of 117. Magnesium normal findings at 1.8. Vital signs reviewed. Blood pressure 110/63, heart rate 75, respiratory rate 17, temp 98.4 F, and SpO2 of 97% on room air. Patient cleared from medical perspective for discharge once cleared by primary admitting orthopedic surgery team. Thank you for allowing us to participate in the care of this pleasant patient. Do not hesitate to contact us with questions. Someone can be reached from the [facility] hospitalist group all hours of the day at [phone] or via perfect serve. Patient was seen independently by Nurse Pracitioner. This document was prepared using [employer] dictation software. Please allow for errors in telesales consultant, while rare they do occur. Moo Bell NP rendered care for this patient independently, reviewed the findings and plan as documented in the note above. I did not physically speak with or examine the patient on this date. Objective - Vital Signs Vital signs: Vital Signs Temp 98.4 F 12/24/23 07:01 Pulse 75 12/24/23 07:01 Resp 17 12/24/23 07:01 BP 110/63 12/24/23 07:01 Pulse Ox 97 12/24/23 07:01 FiO2 Intake & Output 12/23/23 12/24/23 12/24/23 18:59 06:59 18:59 Intake Total 1451 Output Total 45 1825 Balance 1406 -1825 Weight 79.1 kg Intake: IV 1451 Output: Urine 1825 Estimated Blood Loss 45 Other: Voiding Method Urinal # Voids 0 - Labs CBC & Chem 7: 12/24/23 03:53 12/24/23 09:03
[2023-12-24] MEDS ORDERED: ATORVASTATIN 20 MG TAB PO SCH (21:00)
== END 2023-12-24 14:26 | disposition home health service (06) ==
LOC: OR 11:14 → 4SSUR 15:31 → OR 12-24 14:26
PROVIDERS: ATTEND Orthopaedic Surgery
DX: M17.11 Unilateral primary osteoarthritis, right knee (principal); G89.18 Other acute postprocedural pain; E78.5 Hyperlipidemia, unspecified; J45.909 Unspecified asthma, uncomplicated; Z98.890 Other specified postprocedural states; Z79.899 Other long term (current) drug therapy
CPT/HCPCS: 97161; 64999; 64448; 80048; 83735; 85025; 85610; 85730; 73560; 27447; C1776; C1713 ×2; C1751; J2250; J1100; J0690 ×3; J2405; J1650 ×2; J2795; J1170